=== PATIENT | female | born 1995 | race Two or more races ===

== ENCOUNTER 2024-01-23 19:42 | Emergency (ER) | payer OTHER ==
[2024-01-23 19:58] VITALS: BP 162/98; O2SAT 98
--- NOTE | 2024-01-23 20:37 | ED Physician Documentation ---
History of Present Illness - Stated complaint Stated Complaint: - Chief complaint Chief Complaint: General - Additonal information Additional information: 28-year-old female presents emergency department for concerns of a lump to her left labia region. Patient denies any history of IV drug use and MRSA no recent fevers or chills. She does report that she had an abscess in her left armpit a couple months ago that self drained and resolved went away without any complications. Patient noticed a lump to her left labia yesterday she has been applying warm Epsom salt hot compresses to this area to help with drainage but felt like the pain had gotten so severe she wanted to come to the emergency department for further evaluation concern for infection. PD PAST MEDICAL HISTORY - Past Medical History Past Medical History: Yes Psych: Depression - Past Surgical History Past Surgical History: No - Present Medications Home Medications: Ambulatory Orders Medication Instructions Recorded Confirmed Escitalopram [Lexapro] 10 mg PO DAILY 01/23/24 01/23/24 Sulfamethox/Trimeth 800/160 1 tablet PO BID 7 Days #14 tablet 01/23/24 [Bactrim Ds] - Allergies Allergies/Adverse Reactions: Allergies Allergy/AdvReac Type Severity Reaction Status Date / Time No Known Drug Allergies Allergy Verified 01/23/24 19:49 - Social History Does the pt smoke?: No Smoking Status: Never smoker PD ED PE NORMAL - Vitals Vital signs reviewed: Yes - General General: Alert and oriented X 3, No acute distress, Well developed/nourished - Psych Psych: Normal mood, Normal affect PD ED PE EXPANDED - Female Female : Cultures sent (from abcess with purulent blood drainage), [employer] Developer present Female visual: 1 - abscess, swelling, tenderness Results - Vitals Vitals: Vital Signs - 24 hr 01/23/24 19:46 Temperature 36.5 C Heart Rate 98 Respiratory 18 Rate Blood Pressure 162/98 H O2 Saturation 98 Oxygen O2 Source Room air - Labs Labs: Microbiology 01/23/24 21:00 Wound Culture - Preliminary Abscess PD Medical Decision Making - ED course ED course: By the time I was able to evaluate the patient the patient reported that she was noting some drainage in her underwear. I examined the concerning area that patient was worried about and it appears that she had an abscess that had self ruptured. Abscess itself is at about 2 cm or so with induration. About a 0.25 cm opening with a large amount of purulent/bloody drainage is noted. I sent cultures to the lab for further evaluation as this is her second abscess in a short period of time patient denies any history of MRSA. She was started on Bactrim antibiotic this is sent to her preferred pharmacy. I am prescribing a short course of short-acting opioid pain medication for this patient. I have reviewed the patients [employer] and no concerning findings were noted . I have discussed that the opioids are for short term therapy only, and will not be refilled from the ED. Return precautions given. Patient was told to continue with warm compresses and massaging to help the rest of the abscess fully drain I do not believe any further incision is warranted as the abscess appears to be draining quite well right now. Departure - Departure Disposition: 01 Home, Self Care Clinical Impression: Abscess of labia Instructions: ED Abscess IandD Prescriptions: Sulfamethox/Trimeth 800/160 [Bactrim Ds] 1 tablet PO BID 7 Days #14 tablet Comments: Thank you for trusting us with your care. It appears that your abscess on your labia has erupted on its own. We have sent drainage to the lab for further evaluation and culture as we get those results in the next 2 to 3 days. I have started you on antibiotic called Bactrim you will take this twice a day for the next 7 days. You can continue to do warm compresses and massaging to the area to help with any further drainage that could still be collected. Please come back to the emergency department if it gets any worse or if you are starting to have any fevers or chills, or any other concerning emergent symptoms. Forms: PCP List Discharge Date/Time: 01/23/24 21:35
[2024-01-23] MEDS: SULFAMETH/TRIMETH DS 800/160 MG TABLET PO STA (21:09)
[2024-01-23] MEDS: oxyCODONE 5 MG TABLET PO STA (21:09)
[2024-01-23] MEDS: HYDROcod/ACET 5/325 Prepack 4 PO STA (21:31)
== END 2024-01-23 21:35 | disposition home or self-care (01) ==
LOC: ED 19:42
DX: N76.4 Abscess of vulva (principal)
CPT/HCPCS: 87070; 87205; 99283; A9270